=== PATIENT | male | born 1995 | race Caucasian/White ===

== ENCOUNTER 2022-04-21 19:10 | Emergency (ER) | payer SELFPAY ==
--- NOTE | ~2022-04-21 | XR_ITS ---
EXAMINATION: XR chest 2V Exam Date/Time: 04/21/2022 20:00 CDT HISTORY: INTERMITENT SOB X 5 YEARS Comparison: None available. RESULT: Lines, tubes, and devices: None. Lungs and pleura: Minimal biapical pleural scarring. Hilar retraction. Lungs are otherwise clear. Cardiomediastinal silhouette: Calcified hilar nodes. Other: No acute osseous or upper abdominal finding. IMPRESSION: No acute cardiopulmonary process. Reviewed, dictated and finalized at location [facility].
[2022-04-21 19:26] VITALS: BP 126/87; PULSE 80; RESP 16; TEMP 37.1; O2SAT 100
--- NOTE | 2022-04-21 19:28 | ECG_ITS ---
Measurements Intervals [place] Rate: 79 P: 66 PA: 138 QRS: 96 QRSD: 110 T: 57 QT: 346 QTc: 397 Interpretive Statements SINUS RHYTHM WITH MARKED SINUS ARRHYTHMIA RIGHT AXIS DEVIATION PEAKED T WAVES- CONSIDER HYPERKALEMIA BASELINE WANDER- AVR, AVL, AVF ABNORMAL ECG NO PREVIOUS ECG AVAILABLE FOR COMPARISON Electronically Signed On 04-22-2022 8:35:32 CDT by Olivier Mukherjee D.O.
[2022-04-21 19:47] LABS: Basophils Absolute Auto 0.1 K/mm3 (0.0-0.1); Basophils Percent Auto 1.1 % (0.2-1.2); Eosinophils Absolute Auto 0.2 K/mm3 (0-0.3); Eosinophils Percent Auto 2.2 % (0-4.4); Hematocrit 44.4 % (42.0-52.0); Hemoglobin 15.7 g/dL (14.0-18.0); Immature Granulocyte Absolute 0.02 K/mm3 (0.00-0.031); Immature Granulocyte Percent A 0.2 % (0-0.5); Lymphocytes Absolute Auto 2.24 K/mm3 (0.9-3.2); Mean Corpuscular HGB Conc 35.4 g/dl (32-36); Mean Corpuscular Hemoglobin 31.5 pg (26-34); Mean Corpuscular Volume 89.2 fl (80-100); Mean Platelet Volume 10.3 fl (7.4-10.4); Monocytes Absolute Auto 0.6 K/mm3 (0.1-0.6); Monocytes Percent Auto 7.5 % (2.6-8.5); Neutrophils Absolute Auto 5.2 K/mm3 (1.3-6.7); Platelet Count Result 196 k/mm3 (150-375); Red Blood Count 4.98 M/mm3 (4.6-6.20); Red Cell Distribution Width 11.9 % (11.5-14.5); White Blood Count 8.3 K/mm3 (4.5-10.0)
[2022-04-21 19:57] LABS: Alanine Aminotransferase 35 U/L (6-50); Albumin Level 5.2 g/dL (3.5-5.1); Alkaline Phosphatase 80 U/L (38-126); Anion Gap 7 mmol/L (8-16); Aspartate Amino Transferase 34 U/L (17-59); Bilirubin,Total 0.7 mg/dL (0.2-1.3); Blood Urea Nitrogen 9 mg/dL (9-20); Calcium 9.8 mg/dL (8.4-10.2); Carbon Dioxide 27 mmol/L (22-30); Chloride 106 mmol/L (98-107); Estimated CRCL calculation 119 ml/min; Estimated Glomerular Filt Rate > 60; Glucose 105 mg/dL (65-110); Potassium 3.7 mmol/L (3.4-5.0); Sodium 140 mmol/L (137-145)
[2022-04-22 00:09] VITALS: BP 147/85; PULSE 80; PULSE 98; RESP 14; O2SAT 100
--- NOTE | 2022-04-22 00:55 | ED.GENADULT ---
HPI - General Adult General Chief complaint: Shortness of Breath/Dyspnea Stated complaint: sob Time Seen by Provider: 04/22/22 00:47 History of Present Illness HPI narrative: Patient a 26-year-old gentleman who presents the emergency department with chief complaint of shortness of breath. Patient reports that for some time he has been having shortness of breath and this the patient states that over the last 3 days is gotten worse. The patient reports that he smokes about 3-5 blunts per day of marijuana patient states that the symptoms are worse when he tries to take a deep breath the patient reports he is occasionally coughing denies fever denies chills. The patient denies chest pain denies abdominal pain vomiting. Related Data Allergies Allergy/AdvReac Type Severity Reaction Status Date / Time No Known Allergies Allergy Verified 04/21/22 19:10 Review of Systems Review of Systems: A 10 system review of systems was completed on the patient and is negative except for what is stated in the HPI. Nursing and ancillary documentation was reviewed. Exam Narrative: GENERAL: Well-appearing, well-nourished, and in no acute distress. HEAD: Normocephalic, atraumatic. EYES: PERRLA and EOMI. ENT: Nares clear, no rhinorrhea or epistaxis. Mucous membranes moist. NECK: Supple. CHEST: Clear to auscultation. No respiratory distress. HEART: Regular rate and rhythm. No murmur heard. Normal peripheral pulses. ABDOMEN: Soft, nontender, nondistended, normal active bowel sounds. EXTREMITIES: Normal range of motion. No edema. SKIN: Warm, dry, no rash. NEURO: No focal deficits. Alert and oriented x3. PSYCH: Normal mood and affect. Course Vital Signs Vital signs: Vital Signs Temperature 37.1 C 04/21/22 19:26 Pulse Rate 80 04/21/22 19:26 Respiratory Rate 16 04/21/22 19:26 Blood Pressure 126/87 04/21/22 19:26 Pulse Oximetry 100 04/21/22 19:26 Oxygen Delivery Room Air 04/21/22 19:26 Temperature 37.1 C 04/21/22 19:26 Pulse Rate 98 04/22/22 00:09 Respiratory Rate 14 04/22/22 00:09 Blood Pressure 147/85 H 04/22/22 00:09 Pulse Oximetry 100 04/22/22 00:09 Oxygen Delivery Room Air 04/22/22 00:09 Medical Decision Making [facility] Narrative Medical decision making narrative: Differential diagnosis includes dysrhythmia, pneumonia, pneumothorax, upper respiratory infection, pneumonia Chest x-ray showed no acute findings CBC and CMP within normal limits the patient is not hypoxic and not febrile. EKG is sinus rhythm rate of [address] elevation or ST depression patient does have a sinus arrhythmia Patient's presentation is consistent with a upper respiratory infection the patient will be started on albuterol inhaler and given a prescription for Tessalon Perles. Vital Signs Vital Signs: Vital Signs Temperature 37.1 C 04/21/22 19:26 Pulse Rate 80 04/21/22 19:26 Respiratory Rate 16 04/21/22 19:26 Blood Pressure 126/87 04/21/22 19:26 Pulse Oximetry 100 04/21/22 19:26 Oxygen Delivery Room Air 04/21/22 19:26 Temperature 37.1 C 04/21/22 19:26 Pulse Rate 98 04/22/22 00:09 Respiratory Rate 14 04/22/22 00:09 Blood Pressure 147/85 H 04/22/22 00:09 Pulse Oximetry 100 04/22/22 00:09 Oxygen Delivery Room Air 04/22/22 00:09 Lab Data 04/21/22 19:34 04/21/22 19:34 Labs: Lab Results 04/21/22 04/21/22 Range/Units 19:34 19:34 WBC 8.3 (4.5-10.0) K/mm3 RBC 4.98 (4.6-6.20) M/mm3 Hgb 15.7 (14.0-18.0) g/dL Hct 44.4 (42.0-52.0) % MCV 89.2 (80-100) fl MCH 31.5 (26-34) pg MCHC 35.4 (32-36) g/dl RDW 11.9 (11.5-14.5) % Plt Count 196 (150-375) k/mm3 MPV 10.3 (7.4-10.4) fl Immature Gran % (Auto) 0.2 (0-0.5) % Neut % (Auto) 62.0 (45.5-73.1) % Lymph % (Auto) 27.0 (18.3-44.2) % [place] % (Auto) 7.5 (2.6-8.5) % Eos % (Auto) 2.2 (0-4.4) % Baso % (Auto) 1.1 (0.2-1.2) % Lymph # (Auto) 2.2
[2022-04-22 01:12] VITALS: BP 114/89; PULSE 77; RESP 14; O2SAT 100
[2022-04-22] MEDS: ALBUTEROL SULFATE (*SP) INHALER 2 PUFF INHALATION (01:20)
[2022-04-22 01:35] VITALS: BP 138/78; PULSE 72; RESP 14; O2SAT 99
== END 2022-04-22 01:35 | disposition home or self-care (01) ==
PROVIDERS: Emergency Medicine; Emergency Provider Emergency Medicine; PCP Emergency Medicine
DX: J06.9 Acute upper respiratory infection, unspecified (principal)
CPT/HCPCS: 36415; 71046; 80053; 85025; 93005; 94664; 99283; A9270